=== PATIENT | female | born 1955 | race Caucasian/White ===

== ENCOUNTER 2017-11-17 16:06 | Emergency (ER) | payer MEDICARE, OTHER ==
[2017-11-17 16:20] VITALS: BP 155/87
--- NOTE | 2017-11-17 17:14 | ED Physician Documentation ---
General Adult - HISTORIAN Historian: patient - HPI Stated Complaint: fever Chief Complaint: Fever Additional Information: Patient went to have have an abscess lanced on the right thigh area. After she had that done she started to run a fever up to 104. Has been having some chills. Feels achy, mild nonproductive cough. Mild chest achiness. No flu shot given. Patient had packing placed. No other family members at home with symptoms. Onset: hours Timing: still present - ROS CONST: fever, chills CVS/RESP: denies: chest pain, shortness of breath, cough GI/: denies: abdominal pain, problems urinating, vomiting, nausea, diarrhea MS/SKIN/LYMPH: denies: calf pain, joint pain, leg swelling NEURO/PSYCH: denies: headache - PAST HX Past History: hypertension Other History: none Immunizations: referred to PCP Allergies/Adverse Reactions: Allergies Allergy/AdvReac Type Severity Reaction Status Date / Time Penicillins Allergy Verified 11/17/17 16:20 Home Medications: Ambulatory Orders Medication Instructions Recorded Aspirin [Benny] 81 mg PO [id number] 11/17/17 Lisinopril [Lisinopril] 20 mg PO DAILY 11/17/17 Metoprolol Succinate [Toprol XL] 25 mg PO BID 11/17/17 - SOCIAL HX Smoking History: non-smoker Alcohol Use: none Drug Use: none - FAMILY HX Family History: No - VITAL SIGNS Vital Signs: Vital Signs Temp Pulse Resp BP Pulse Ox 100 F H 111 H 20 155/87 96 11/17/17 16:18 11/17/17 16:18 11/17/17 16:18 11/17/17 16:18 11/17/17 16:18 - REVIEWED ASSESSMENTS Nursing Assessment Reviewed: Yes Vitals Reviewed: Yes Progress - Progress Progress: Patient advsied that she may have had some bacturemia related to abscess manipulation. Possibly could be due to viral illness that just happened to occur today. Advised of symptomatic care.Abscess area looks pretty good at this time. ED Results Lab/Radiology - Radiology Radiology Impressions: Examination: PA and lateral chest. History: Evaluate lung hector. Comparison exam: None provided Findings: PA lateral chest demonstrate a normal cardiac silhouette. Tortuous aorta with vascular calcifications. No focal infiltrate. No blunting of the costophrenic margins. Osseous structures are appropriate for age. Impression: No acute pulmonary process. General Adult Physical Exam - PHYSICAL EXAM GENERAL APPEARANCE: mild distress EENT: ENT inspection normal NECK: normal inspection, supple. No: lymphadenopathy, stiff neck, meningismus RESPIRATORY: no resp distress, chest non-tender, breath sounds normal. No: wheezes, rales, rhonchi CVS: reg rate & rhythm, heart sounds normal, equal pulses, no murmur, no gallop ABDOMEN: soft, no organomegaly, normal bowel sounds, no abdominal bruit, no distension, non-tender BACK: normal inspection, no CVA tenderness SKIN: warm/dry, normal color, other (erythema surrounding the abscess on the right upper thigh area, packing in place.) EXTREMITIES: non-tender, no edema NEURO: oriented X3, cognition normal Discharge Clincal Impression: Febrile illness, acute Referrals: Naun Nicole DO [STAFF PHYSICIAN] - 2 Days Additional Instructions: Continue taking Bactrim as directed. Drink a lot of fluids. If you have any further problems or questions to return to the ED. Take Ibuprofen as needed for fever/chills. Condition: Stable Disposition: 01 HOME, SELF-CARE Decision to Admit: NO Date of Decison to Admit: 11/17/17 Decision Time: 18:06
[2017-11-17 17:37] LABS: BASOPHILS % 0.3 (0.0-1.5); EOSINOPHILS % 0.8 % (0.0-6.8); MEAN CORPUSCULAR HEMOGLOBIN 31.3 pg (28.0-34.0); MEAN CORPUSCULAR VOLUME 90.9 fl (80.0-100.0); MONOCYTES % 3.8 % (0.0-11.0); NEUTROPHILS # 15.1 # k/uL (1.4-7.7)
[2017-11-17 17:50] LABS: eGFR (African) > 60; eGFR (Non-African) > 60
--- NOTE | 2017-11-17 17:50 | Diagnostic Imaging Report ---
WINIFRED ALMONTE [facility] [address] [facility].[address] [address] Report Submission Date: Nov 17, 2017 5:44:23 PM [employer] Patient Study Name: ELISABETH JORGE Date: Nov 17, 2017 5:29:25 PM [employer] MRN: [id number] Modality Type: CR Gender: F Description: CHEST : 57 Institution: [facility] Physician: WINIFRED ALMONTE Examination: PA and lateral chest. History: Evaluate lung hector. Comparison exam: None provided Findings: PA lateral chest demonstrate a normal cardiac silhouette. Tortuous aorta with vascular calcifications. No focal infiltrate. No blunting of the costophrenic margins. Osseous structures are appropriate for age. Impression: No acute pulmonary process. Electronically signed on Nov 17, 2017 5:44:23 PM [employer]INGS [employer]ER by: Allan DEL REAL
== END 2017-11-17 18:12 | disposition home or self-care (01) ==
LOC: ED 16:06
DX: B15.9 Hepatitis A without hepatic coma (principal)
CPT/HCPCS: 71020; 80053; 85025; 87400; 99283

== ENCOUNTER 2018-08-12 22:01 | Emergency (ER) | payer OTHER ==
[2018-08-12] MEDS ORDERED: ASPIRIN 81 MG CHEW TAB PO ONE (22:20)
--- NOTE | 2018-08-12 22:36 | Diagnostic Imaging Report ---
EDWIN JOY [facility] [address] [facility] [address] [place], [place]. [address] Report Submission Date: Aug 12, 2018 10:34:14 PM CDT Patient Study Name: ELISABETH JORGE Date: Aug 12, 2018 10:18:49 PM CDT Modality Type: DX Gender: F Description: CHEST : 57 Institution: [facility] Physician: EDWIN JOY Chest, 1 view History: ELEVATED BLOOD PRESSURE AND EXHAUSTION X 2 DAYS. Findings: The heart size is normal. Trace atherosclerosis of the aortic arch noted. The lungs are clear. There is no pleural effusion or pneumothorax identified. The osseous structures are normal. Impression: 1. No acute pulmonary disease. Electronically signed on Aug 12, 2018 10:34:14 PM CDT by: Roshan DEL REAL
[2018-08-12 23:12] LABS: eGFR (Non-African) > 60
[2018-08-13 00:01] LABS: BASO % 0.5 % (0.0-1.5); EOS % 1.7 % (0.0-6.8); LYMPH ABS # 2.78 thou/uL (0.60-4.00); MCH. 31.4 pg (28.0-34.0); MCV 91.3 fL (80.0-100.0); MONOCYTE % 5.1 % (0.0-11.0); MONOCYTE ABS # 0.51 thou/uL (0.00-0.90); PLATELET COUNT 260 thou/uL (130-400)
--- NOTE | 2018-08-13 00:08 | ED Physician Documentation ---
General Adult - HISTORIAN Historian: patient - HPI Stated Complaint: High BP Chief Complaint: General Adult Onset: hours (6) Timing: still present Severity: mild Further Comments: yes (She reports she went to an oral surgeon today to have a tooth pulled and she was told her blood presure was too high. After ambulance refusal she went to her PCP who encouaged her to take an extra 10 mg of lisinopril daily. She has taken her 20 mg and then 10 mg tonight as well as her metoprolol. She has felt "bad" today and had some chest "congestion" she denies any pain. She feels a mild dull headache and fatigue. No weakness. No nausea or diaphoresis. She denies any shortness of breath) - ROS CONST: no problems MS/SKIN/LYMPH: none NEURO/PSYCH: headache. denies: fainting, dizziness, numbness, difficulty walking, difficulty with speech - PAST HX Past History: hypertension, other (hyperlipidemia ) Immunizations: UTD Allergies/Adverse Reactions: Allergies Allergy/AdvReac Type Severity Reaction Status Date / Time Penicillins Allergy Verified 08/12/18 23:10 Home Medications: Ambulatory Orders Medication Instructions Recorded Aspirin [Benny] 81 mg PO [id number] 11/17/17 Lisinopril 20 mg PO DAILY 11/17/17 Metoprolol Succinate [Toprol XL] 25 mg PO BID 11/17/17 - SOCIAL HX Smoking History: non-smoker Alcohol Use: none Drug Use: none - FAMILY HX Family History: No - VITAL SIGNS Vital Signs: Vital Signs Temp Pulse Resp BP Pulse Ox 98.1 F 59 L 14 193/83 94 08/12/18 22:01 08/12/18 22:50 08/12/18 22:01 08/12/18 22:01 08/12/18 22:50 - REVIEWED ASSESSMENTS Nursing Assessment Reviewed: Yes Vitals Reviewed: Yes Progress - Progress Progress: 0005: resting in bed without complaints. B/P has normalized DG 1220: results discussed. she did not want clonidine due to a possible allergy. She states she is feeling mostly better. some mild neck pain (she does not want a med here for that) She denies any shortness of breath. No chest pain. She feels less fatigue. She has no weakness she denies any leg pain . She is requesting to go home DG ED Results Lab/Radiology - Lab Results Lab Results: Lab Results 08/12/18 08/12/18 08/12/18 22:52 22:48 22:48 WBC Comment 10.04 thou/uL thou/uL (4.00-12.00) RBC 5.00 mil/uL mil/uL (3.90-5.20) Hemoglobin (Send Out) 15.7 g/dL g/dL (11.5-16.0) Hct (Send Out) 45.6 % % (34.5-46.5) MCV (Send Out) 91.3 fL fL (80.0-100.0) MCH 31.4 pg pg (28.0-34.0) MCHC (Send Out) 34.4 g/dL g/dL (30.0-36.0) RDW Coeff of Bautista 12.8 % % (11.3-14.7) Plt Count 260 thou/uL thou/uL (130-400) Absolute Lymphs (auto) 2.78 thou/uL thou/uL (0.60-4.00) Absolute Monos (auto) 0.51 thou/uL thou/uL (0.00-0.90) Absolute Basos (auto) 0.05 thou/uL thou/uL (0.00-0.50) Neutrophils % 64.9 % % (39.0-79.0) Absolute Neutrophils 6.52 thou/uL thou/uL (1.50-7.70) Lymphocytes 27.7 % % (16.0-50.0) Monocytes 5.1 % % (0.0-11.0) Absolute Eosinophils 0.17 thou/uL thou/uL (0.00-0.60) Basophilia % 0.5 % % (0.0-1.5) Eosinophil Count 1.7 % % (0.0-6.8) D-Dimer 1095 ng/mL H ng/mL (6.0-682) Sodium 134 mmol/L L mmol/L (136-145) Potassium 3.9 mmol/L mmol/L (3.5-5.1) Chloride 110 mmol/L H mmol/L (98-107) Carbon Dioxide 25 mmol/L mmol/L (22-30) BUN 10 mg/dL mg/dL (7-17) Creatinine 0.70 mg/dL mg/dL (0.52-1.04) Estimated Creat Clear 115 Est GFR ( Amer) > 60 (60 - ) Est GFR (Non-Af Amer) > 60 (60 - ) Glucose 96 mg/dL mg/dL (74-106) Calcium 9.2 mg/dL mg/dL (8.4-10.2) Total Bilirubin 0.4 mg/dL mg/dL (0.2-1.3) AST 23 U/L U/L (15-46) ALT 25 U/L U/L (13-69) Alkaline Phosphatase 98 U/L U/L (38-126) Creatine Kinase 53 U/L U/L (30-135) Troponin I < 0.03 ng/mL L ng/mL (0.03-0.06) Total Protein 7.6 g/dL g/dL (6.3-8.2) Albumin 4.1 g/dL g/dL (3.5-5.0) - Radiology Radiology Impressions: Chest, 1 view History: ELEVATED BLOOD PRESSURE AND EXHAUSTION X 2 DAYS. Findings: The heart size is normal. Trace atherosclerosis of the aortic arch noted. The lungs are clear. There is no pleural effusion or pneumothorax identified. The osseous structures are normal. Impression: 1. No acute pulmonary disease. Electronically signed on Aug 12, 2018 10:34:14 PM CDT by: Roshan Morales CT chest with contrast Date of study: August 12, 2018 CLINICAL HISTORY: CHEST WITH CONTRAST FOR PE. 93ML OMNI 300 IV CONTRAST. ELEVATED D-DIMER. (Hx) / ITS.REASON R/O PE (DICOM Hx) / ITS.REASON chest pain (Pt comments) TECHNIQUE: 3 mm contiguous axial images of the chest with contrast. Sagittal and coronal reconstructions. FINDINGS: There is aortic and great vessel calcification. There is no pulmonary emboli. Coronary artery calcification is present. The upper abdomen is unremarkable. Lung windows show clear peripheral lung hector.. There is thoracic spondylosis. IMPRESSION: Negative for pulmonary emboli Extensive coronary calcification. Aortic arch calcification Electronically signed on Aug 13, 2018 12:11:36 AM CDT by: Estevan Duran - Orders Orders: ED Orders Category Date Time Status Continuous EKG monitoring Q30M Care 08/12/18 22:20 Active Continuous Pulse Oximetry Q30M Care 08/12/18 22:[address] IV Lock 1T Care 08/12/18 22:20 Active CHEST 1VIEW [RAD] Stat Exams 08/12/[address] CHEST W/ CONTRAST Stat Exams 08/12/18 Taken CBC REF Routine Lab 08/12/18 22:48 Completed CBC/PLATELET/DIFF Routine Lab 08/12/18 22:48 Received CMP Stat Lab 08/12/18 22:48 Completed CREATINE KINASE Stat Lab 08/12/18 22:48 Completed D DIMER Stat Lab 08/12/18 22:52 Completed TROPONIN I (cTnI) Stat Lab 08/12/18 22:52 Completed Aspirin Med 08/12/18 22:20 Discontinued 324 mg PO NOW ONE Oxygen Daily Oxygen 08/12/18 22:30 Ordered Oxygen Daily Oxygen 08/13/18 22:30 Ordered EKG WITH COMPARISON Stat Ther 08/12/18 22:20 Ordered General Adult Physical Exam - PHYSICAL EXAM GENERAL APPEARANCE: no distress EENT: eye inspection normal NECK: normal inspection RESPIRATORY: no resp distress, chest non-tender, breath sounds normal CVS: reg rate & rhythm, heart sounds normal, equal pulses ABDOMEN: soft, no distension BACK: normal inspection SKIN: warm/dry, normal color EXTREMITIES: non-tender, normal range of motion NEURO: oriented X3, CN's nml as tested, motor nml, sensation nml, mood/affect nml, cognition normal Discharge Clincal Impression: Hypertension Qualifiers: Hypertension type: unspecified Qualified Code(s): I10 - Essential (primary) hypertension Referrals: Primary Doctor,No [Primary Care Provider] - 2 Days Additional Instructions: 1. Continue home meds 2. Follow up with PCP in 2-4 days 3. Return to ER for any concerns Condition: Stable Disposition: 01 HOME, SELF-CARE Decision to Admit: NO Date of Decison to Admit: 08/13/18 Decision Time: 00:28
[2018-08-13] MEDS ORDERED: CloNIDine HCL 0.1 MG TABLET PO ONE (00:16)
--- NOTE | 2018-08-13 00:19 | Diagnostic Imaging Report ---
EDWIN JOY [facility] [address] [facility] [address] [place], [place]. [address] Report Submission Date: Aug 13, 2018 12:11:36 AM CDT Patient Study Name: ELISABETH JORGE Date: Aug 12, 2018 11:45:28 PM CDT Modality Type: CT Gender: F Description: CT CHEST W/ CONTRAST : 57 Institution: [facility] Physician: EDWIN JOY CT chest with contrast Date of study: August 12, 2018 CLINICAL HISTORY: CHEST WITH CONTRAST FOR PE. 93ML OMNI 300 IV CONTRAST. ELEVATED D-DIMER. (Hx) / ITS.REASON R/O PE (DICOM Hx) / ITS.REASON chest pain (Pt comments) TECHNIQUE: 3 mm contiguous axial images of the chest with contrast. Sagittal and coronal reconstructions. FINDINGS: There is aortic and great vessel calcification. There is no pulmonary emboli. Coronary artery calcification is present. The upper abdomen is unremarkable. Lung windows show clear peripheral lung hector.. There is thoracic spondylosis. IMPRESSION: Negative for pulmonary emboli Extensive coronary calcification. Aortic arch calcification Electronically signed on Aug 13, 2018 12:11:36 AM CDT by: Estevan DEL REAL
[2018-08-13 00:43] VITALS: BP 148/97
== END 2018-08-13 00:35 | disposition home or self-care (01) ==
LOC: ED 22:01
DX: I10 Essential (primary) hypertension (principal)
CPT/HCPCS: 71045; 71260; 80053; 82550; 84484; 85025; 85379; 99284; Q9967; S1016

== ENCOUNTER 2018-08-15 20:35 | Emergency (ER) | payer OTHER ==
--- NOTE | 2018-08-15 20:48 | ED Physician Documentation ---
General Adult - HISTORIAN Historian: patient - HPI Stated Complaint: HTN Chief Complaint: General Adult Onset: hours Timing: still present Severity: moderate Further Comments: yes (Pt is a 62 yo female who was here on 08/12/18 for elevated bp. Today pt had elevated bp at home and presented with bp= 200/105. Pt has not been feeling well and is achy all over. No fever, n/v. Pt has had diarrhea. Three grandchildren at her home also have diarrhea, as well as her daughter. No blood in bm. Pt recently increased her Lisionpril dose from 20 to 30 mg and her metoprolol 25 from qd to bid.) - ROS CONST: weakness, other (muscle ache) EYES/ENT: none CVS/RESP: none GI/: diarrhea MS/SKIN/LYMPH: none - PAST HX Past History: hypertension Allergies/Adverse Reactions: Allergies Allergy/AdvReac Type Severity Reaction Status Date / Time Penicillins Allergy Verified 08/15/18 20:47 Home Medications: Ambulatory Orders Medication Instructions Recorded Aspirin [Benny] 81 mg PO [id number] 11/17/17 Lisinopril 20 mg PO DAILY 11/17/17 Metoprolol Succinate [Toprol XL] 25 mg PO BID 11/17/17 Ciprofloxacin HCl [Cipro] 500 mg PO BID #14 tablet 08/15/18 - SOCIAL HX Smoking History: cigarettes - FAMILY HX Family History: No - VITAL SIGNS Vital Signs: Vital Signs Temp Pulse Resp BP Pulse Ox 148/97 08/13/18 00:35 - REVIEWED ASSESSMENTS Nursing Assessment Reviewed: Yes Vitals Reviewed: Yes Progress - Progress Progress: Clonidine 0.1 mg BP 200/105 --> 142/74 U/a - 3+ leukoesterase Pt will follow up with primary provider at walk-in clinic in AM about hypertension. For UTI Rx Ciprofloxacin 500 mg. Take one every 12 hours for 7 days. 1st dose in ER. [May help also with diarrhea.] - EKG/XRAY/CT EKG: NSR (HR=61; normal EKG) General Adult Physical Exam - PHYSICAL EXAM GENERAL APPEARANCE: moderate distress EENT: pharynx normal NECK: normal inspection, supple RESPIRATORY: no resp distress, chest non-tender, breath sounds normal CVS: reg rate & rhythm, heart sounds normal ABDOMEN: soft, no organomegaly, normal bowel sounds BACK: normal inspection, no CVA tenderness SKIN: warm/dry, normal color EXTREMITIES: non-tender, normal range of motion, no evidence of injury NEURO: oriented X3, motor nml, sensation nml Discharge Clincal Impression: UTI Hypertension Qualifiers: Hypertension type: unspecified Qualified Code(s): I10 - Essential (primary) hypertension Prescriptions: Ciprofloxacin HCl [Cipro] 500 mg PO BID #14 tablet Referrals: Primary Doctor,No [Primary Care Provider] - 2 Days Condition: Stable Disposition: 01 HOME, SELF-CARE Decision to Admit: NO Decision Time: 22:40
[2018-08-15] MEDS: CloNIDine HCL 0.1 MG TABLET PO ONE (21:05)
[2018-08-15 22:10] LABS: eGFR (Non-African) > 60
[2018-08-15] MEDS: CIPROFLOXACIN HCL 500 MG TABLET PO ONE (22:40)
[2018-08-15 22:50] VITALS: BP 142/74
[2018-08-16 06:15] LABS: OCCULT BLOOD,URINE 1+ (NEGATIVE); PH URINE 5.5 (5.0 - 8.0); UROBILINOGEN URINE 0.2 Eu (0.2-1.0)
== END 2018-08-15 22:50 | disposition home or self-care (01) ==
LOC: ED 20:35
DX: I10 Essential (primary) hypertension (principal); N39.0 Urinary tract infection, site not specified
CPT/HCPCS: 80053; 81002; 84484; 87086; 99283; S1016

== ENCOUNTER 2018-08-29 18:10 | Emergency (ER) | payer OTHER ==
--- NOTE | 2018-08-29 19:31 | ED Physician Documentation ---
General Adult - HISTORIAN Historian: patient - HPI Stated Complaint: Dental Pain/GARDNER/HTN Chief Complaint: General Adult Onset: days ago Timing: still present Severity: moderate Further Comments: yes (Pt is a 62 yo female who c/o headache, dental pain, with HTN presenting with bp = 193/98. Pt was seen here 08/15/18 for UTI and HTN, and was supposed to f/u with pcp. She states that her lisiopril was increased from 20 mg to 30 mg qd and her metoprolol was changed from qd to bid, but the record shows that she was rx'd metopolol bid many months ago. Pt states that headaches have been going on for weeks.) - ROS CONST: other (malaise) EYES/ENT: other (dental pain R lower jaw) CVS/RESP: none GI/: problems urinating MS/SKIN/LYMPH: none NEURO/PSYCH: headache - PAST HX Past History: hypertension Allergies/Adverse Reactions: Allergies Allergy/AdvReac Type Severity Reaction Status Date / Time Penicillins Allergy Verified 08/29/18 18:26 Home Medications: Ambulatory Orders Medication Instructions Recorded Aspirin [Benny] 81 mg PO [id number] 11/17/17 Lisinopril 20 mg PO DAILY 11/17/17 Metoprolol Succinate [Toprol XL] 25 mg PO BID 11/17/17 Gemfibrozil [Lopid] 600 mg PO DAILY 08/29/18 - SOCIAL HX Smoking History: cigarettes - FAMILY HX Family History: No - VITAL SIGNS Vital Signs: Vital Signs Temp Pulse Resp BP Pulse Ox 97.8 F 61 16 160/89 98 08/29/18 18:10 08/29/18 18:10 08/29/18 18:10 08/29/18 19:19 08/29/18 18:10 - REVIEWED ASSESSMENTS Nursing Assessment Reviewed: Yes Vitals Reviewed: Yes Progress - Progress Progress: Hydralazine 10 mg IV BP 160/89 Rx Bactrim DS. Take one every 12 hours for 10 days. (for UTI/dental pain) Rx Tylenol #3 (with codeine). Take one or two every 6 hours as needed for pain. Follow up with primary provider for recheck of blood pressure and medication review. General Adult Physical Exam - PHYSICAL EXAM GENERAL APPEARANCE: mild distress EENT: pharynx normal, other (dental tenderness R molar, no swelling) RESPIRATORY: no resp distress, chest non-tender, breath sounds normal CVS: reg rate & rhythm, heart sounds normal ABDOMEN: soft, no organomegaly, normal bowel sounds BACK: normal inspection, no CVA tenderness SKIN: warm/dry, normal color EXTREMITIES: non-tender, normal range of motion, no evidence of injury NEURO: oriented X3, CN's nml as tested, motor nml, sensation nml Discharge Clincal Impression: headache, dental pain Hypertension Qualifiers: Hypertension type: unspecified Qualified Code(s): I10 - Essential (primary) hypertension UTI (urinary tract infection) Qualifiers: Urinary tract infection type: site unspecified Hematuria presence: without hematuria Qualified Code(s): N39.0 - Urinary tract infection, site not specified Referrals: Primary Doctor,No [Primary Care Provider] - Condition: Stable Disposition: 01 HOME, SELF-CARE Decision to Admit: NO Decision Time: 23:09
[2018-08-29] MEDS ORDERED: hydrALAZINE HCL 20 MG/1 ML IVP ONE ×2 (19:48→22:51)
[2018-08-29 22:20] LABS: eGFR (Non-African) > 60
[2018-08-29] MEDS ORDERED: SULFAMETHOXAZOLE/TRIMETHOPRIM 1 EACH TABLET PO ONE (23:24)
[2018-08-29] MEDS ORDERED: ACETAMINOPHEN WITH CODEINE 300MG/30MG TABLET PO ONE (23:25)
[2018-08-30 03:42] VITALS: BP 161/81
== END 2018-08-29 23:25 | disposition home or self-care (01) ==
LOC: ED 18:10
DX: K08.89 Other specified disorders of teeth and supporting structures (principal); R51 Headache; I10 Essential (primary) hypertension; N39.0 Urinary tract infection, site not specified
CPT/HCPCS: 80053; 85025; J0360; 96374; 99284; A9270; S1016

== ENCOUNTER 2018-09-23 07:26 | Emergency (ER) | payer OTHER ==
--- NOTE | 2018-09-23 07:35 | ED Physician Documentation ---
General Adult - HISTORIAN Historian: patient - HPI Stated Complaint: high blood pressure Chief Complaint: General Adult Additional Information: Patient presents to the ED with elevated blood pressure (200/108) with associated numbness in left arm. Patient takes metoprolol and lisinopril at home. She admits to recent change in dosing due to hypotension (116/60). She has been to several providers including ER in [place] for similar symptoms. She has had recurrent UTI over the past several months and is having frequent urination today. Onset: hours (2 hours) Timing: still present Severity: moderate - ROS CONST: denies: fever EYES/ENT: denies: problems with vision CVS/RESP: denies: chest pain, shortness of breath GI/: denies: abdominal pain, problems urinating MS/SKIN/LYMPH: denies: calf pain NEURO/PSYCH: denies: headache, fainting, dizziness - PAST HX Past History: hypertension Other History: none Surgeries/Procedures: none Allergies/Adverse Reactions: Allergies Allergy/AdvReac Type Severity Reaction Status Date / Time Penicillins Allergy Verified 08/29/18 18:26 Home Medications: Ambulatory Orders Medication Instructions Recorded Lisinopril 2.5 mg PO DAILY 09/23/18 Metoprolol Tartrate [Lopressor] 25 mg PO BID 09/23/18 - SOCIAL HX Smoking History: greater than 1 pack/day (45 pack year history) Alcohol Use: none Drug Use: none - FAMILY HX Family History: No - VITAL SIGNS Vital Signs: Vital Signs Temp Pulse Resp BP Pulse Ox 161/81 08/30/18 03:37 - REVIEWED ASSESSMENTS Nursing Assessment Reviewed: Yes Vitals Reviewed: Yes ED Results Lab/Radiology - Lab Results Lab Results: UA - trace blood, Negative nitrate, leukocyte 1+ Troponin ,0.03 General Adult Physical Exam - PHYSICAL EXAM GENERAL APPEARANCE: no distress EENT: LISE NECK: normal inspection RESPIRATORY: no resp distress, chest non-tender, breath sounds normal CVS: reg rate & rhythm, heart sounds normal ABDOMEN: soft, normal bowel sounds RECTAL: deferred BACK: no CVA tenderness SKIN: warm/dry EXTREMITIES: non-tender NEURO: oriented X3 Discharge Clincal Impression: Hypertensive urgency Referrals: Primary Doctor,No [Primary Care Provider] - 2 Days Additional Instructions: Follow up with [facility] on ThursdaySeptember 27 as already scheduled. A sleep study may be beneficial. Take all medications as prescribed. Smoking cessation recommended. Return to ED if chest pain occurs or blood pressure remains over 200 systolic or 100 diastolic even after PRN Hydralazine. Condition: Stable Disposition: 01 HOME, SELF-CARE Decision to Admit: NO Date of Decison to Admit: 09/23/18 Decision Time: 09:18
[2018-09-23] MEDS: CloNIDine HCL 0.1 MG TABLET PO ONE (07:45)
[2018-09-23 08:00] LABS: APPEARANCE,URINE CLEAR (CLEAR); COLOR,URINE YELLOW (YELLOW); OCCULT BLOOD,URINE TR (NEGATIVE); PH URINE 5.5 (5.0 - 8.0); UROBILINOGEN URINE 0.2 Eu (0.2-1.0)
[2018-09-23 09:02] VITALS: BP 143/77
== END 2018-09-23 09:18 | disposition home or self-care (01) ==
LOC: ED 07:26
DX: I16.0 Hypertensive urgency (principal)
CPT/HCPCS: 81002; 84484; 87086; 99284

== ENCOUNTER 2018-10-16 08:42 | Emergency (ER) | payer OTHER ==
[2018-10-16] MEDS ORDERED: ASPIRIN 81 MG CHEW TAB PO ONE (09:08)
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
[2018-10-16 10:03] LABS: MEAN CORPUSCULAR HEMOGLOBIN 31.8 pg (28.0-34.0)
[2018-10-16 10:05] LABS: BASOPHILS % 0.3 (0.0-1.5); EOSINOPHILS % 1.7 % (0.0-6.8); NEUTROPHILS # 6.3 # k/uL (1.4-7.7)
[2018-10-16 10:10] LABS: eGFR (Non-African) > 60
--- NOTE | 2018-10-16 10:21 | Diagnostic Imaging Report ---
ROSEMARIE BOOKER [facility] [address] [facility] [address] [address] Report Submission Date: Oct 16, 2018 9:50:22 AM SEROLOGY TECHNICIAN Patient Study Name: ELISABETH JORGE Date: Oct 16, 2018 9:08:38 AM SEROLOGY TECHNICIAN Modality Type: DX Gender: F Description: CHEST : 57 Institution: [facility] Physician: ROSEMARIE BOOKER HISTORY: 63-year-old female with hypertension and dizziness COMPARISON: CT scan of the chest dated 08/12/2018. TECHNIQUE: 2 views of the chest were performed. FINDINGS: No pneumothorax, consolidative infiltrates, pleural effusions, or pulmonary edema. The lungs are mildly hyperexpanded. The heart is not enlarged. IMPRESSION: No acute cardiopulmonary process. Electronically signed on Oct 16, 2018 9:50:22 AM SEROLOGY TECHNICIAN by: Javy DEL REAL
[2018-10-16 11:17] VITALS: BP 162/74
== END 2018-10-16 11:00 | disposition home or self-care (01) ==
LOC: ED 08:42
DX: I10 Essential (primary) hypertension (principal)
CPT/HCPCS: 36415; 71046; 80053; 84484; 85025; 99283; 99284; S1016